=== PATIENT | male | born 1990 | race Caucasian/White ===

== ENCOUNTER 2021-01-22 10:03 | Emergency (ER) | payer MEDICAID, SELFPAY ==
[2021-01-22] VITALS (43 sets, daily range): BP systolic 107–149; BP diastolic 49–79; PULSE 48–87; RESP 11–20; TEMP 37; O2SAT 96–100
[2021-01-22] MEDS: EPINEPHrine 1 MG/ML AMP pres-free ×2 (10:10→11:03)
[2021-01-22] MEDS: Normal Saline 1,000 ML 1000 ML IV ×2 (10:10→10:46)
[2021-01-22] MEDS: diphenhydrAMINE 50 MG/ML VIAL IVP (10:16)
[2021-01-22] MEDS: methylPREDNISolone SUCC 125 MG VIAL IVP (10:19)
[2021-01-22] MEDS: FAMOTIDINE 20 MG/50 ML BAG 200 MG IVPB (10:22)
--- NOTE | 2021-01-22 11:04 | ED.GENADUL_ITS ---
Discharge Plan Disposition Patient Disposition: HOME Condition: Stable Discharge Details Clinical Impression: Anaphylactic reaction to bee sting Primary Care Provider: Unknown,Unknown ED Provider: Sara Robbins Home Meds and New Rx's Prescriptions: New epinephrine [EpiPen] 0.3 mg/0.3 mL auto-injector 0.3 mg IM ONCE Qty: 2 RF: 0 prednisone 20 mg tablet 40 mg PO DAILY Qty: 8 RF: 0 Discharge Instructions Instructions: Prednisone (By mouth), Anaphylaxis (ED), General Allergic Reaction (ED) Additional Instructions: Please return immediately to the emergency department if you develop any new or worsening symptoms, if your condition does not improve as expected, or if you become otherwise concerned. It is extremely important that you call soon as possible to make an appointment to be seen in follow-up for this visit by your primary care doctor. Discharge Data Discharge Date/Time-TO BE ENTERED AT DEPARTURE: 01/22/21 14:24 Medical Decision Making Bang Alvarenga is a 30 y/o man without reported major medical problems who presented to the emergency department with facial swelling and redness, dry throat sensation after being stung by multiple bees in the lower legs. On exam there is no apparent airway compromise, benign cardiopulmonary exam. Concern for early anaphylaxis, possible developing airway involvement with complaint of dry throat. Plan for IV placement, telemetry, IM epi, IV benadryl, IV solumedrol, IV pepcid. Will monitor and reassess. Exam/hx at this time not c/w sepsis, TEN, SJS, infectious etiology of symptoms. Pt developed maculopapular rash to stomach, b/l UEs subsequent to epi and meds, reports no improvement in symptoms. Concern for persistent severe allergic reaction. IM epi redosed. Pt reported feeling significantly improved after 2nd dose epi. Facial swelling and redness subsided, rash improved, denies any abnormal throat or mouth sensation. Will continue to monitor. Pt observed for 4 hours in the ED. No recurrence of symptoms. Pt reports feeling well and asymptomatic. Skin findings resolved. Plan for outpt steroids, rx epipen, outpt f/u. I had a lengthy discussion with Patient regarding return to emergency department precautions, home care, and importance of outpatient follow-up. Pt verbalizes understanding of the plan and is amenable. Patient discharged to home with clear plan for outpatient follow-up. All questions were answered. Disposition decision was made weighing the risks and benefits of hospitalization versus outpatient treatment, the risk for further decompensation, and the patient's wishes. Medical Records Medical records reviewed: Yes I reviewed the patient's medical records. HPI General Mode of arrival: ambulatory . Date/Time Provider Initiated Documentation: 01/22/21 10:05 . Limitations to Documentation: no limitations . Information obtained by: patient, RN notes reviewed and old records reviewed . HPI Narrative: Bang Alvarenga is a 30-year-old man presenting to the emergency department with chief complaint of allergic reaction. 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 He reports with this things were to bilateral lower legs around his sock line. Patient reports that his face feels swollen and hot. He also reports a sensation like there is dry cotton in the back of his throat. He denies any lip or tongue swelling. Denies difficulty breathing. No pain, vomiting, diarrhea, cough, other swelling, rash. No h/o allergies or similar allergic reaction. Was previously well and in his usual state of health. Related Data Home Medications Medication Instructions Recorded Confirmed epinephrine [EpiPen] 0.3 mg IM ONCE #2 ea 01/22/21 01/23/21 prednisone 40 mg PO DAILY #8 tab 01/22/21 01/23/21 Previous Rx's Medication Instructions Recorded epinephrine [EpiPen] 0.3 mg IM ONCE #2 ea 01/22/21 prednisone 40 mg PO DAILY #8 tab 01/22/21 Allergies Allergy/AdvReac Type Severity Reaction Status Date / Time No Known Drug Allergies Allergy Unverified 04/16/17 09:50 General Stated Complaint: Allergic SUNG: 2 Review of Systems Narrative: Constitutional: denies fevers Eyes: denies eye pain ENT: denies ear pain, dental pain, reports drythroat, facial swelling and redness Cardiovascular: denies chest pain Respiratory: denies SOB, cough GI: denies abdominal pain, vomiting, diarrhea : denies flank pain MSK: denies back pain, neck pain, arthralgias, myalgias Skin: denies rash Neuro: denies headaches, numbness, weakness PFSH Surgical History Appendectomy Social History Smoking/Tobacco Use Status: Current, status unknown Smoking risk assessment performed?: Yes Alcohol Intake: current Alcohol Intake frequency: holidays/special occasions only Drug use: Daily Substance use type: marijuana Do you feel safe at home: Yes Do you feel safe in your relationship?: Yes Exam Narrative Exam Narrative: Constitutional: [id number], conversing normally HENT: head atraumatic/normocephalic, diffuse erythema of the face, diffuse edema of the face most signficant in b/l infraorbital areas, mucous membranes moist, no lip or tongue edema, no pharyngeal edema, uvula midline, handling secretions without issue, normal voice Eyes: conjunctiva normal, sclera normal, pupils 3mm b/l Neck: no stridor, normal ROM, trachea midline Chest: normal inspection Resp: normal work of breathing, LCTAB Cardio: normal rate, normal rhythm, no murmur appreciated Back: normal inspection, no rash Skin: warm, dry, normal color, no rash Neuro: alert, not altered, grossly non-focal, normal tone Ext: no edema, no rash, no retained stingers to the lower legs Psych: normal mood, normal affect, normal behavior Course Vital Signs Vital signs: Vital Signs Temperature 37.0 C 01/22/21 10:06 Pulse 78 01/22/21 10:06 Blood Pressure 149/79 H 01/22/21 10:06 Pulse Oximetry 99 01/22/21 10:06 Temperature 37.0 C 01/22/21 10:06 Temperature Source Temporal Artery Scan 01/22/21 10:06 Pulse 78 01/22/21 10:06 Respiratory Effort 01/22/21 10:35 Respiratory Pattern Normal 01/22/21 10:35 Blood Pressure 149/79 H 01/22/21 10:06 Blood Pressure Position Sitting 01/22/21 10:06 Pulse Oximetry 99 01/22/21 10:06 Oxygen Delivery Method Room Air 01/22/21 10:06 Oxygen Flow Rate 0 01/22/21 10:06 Pain Level 0 01/22/21 10:06 Critical Care Time Critical Care Time Critical Care Time: Yes Total Critical Care Time: 35 Attestation: I have spent 35 minutes of critical care time with this patient, including frequent reassessments and discussions with family.
== END 2021-01-22 14:24 | disposition home or self-care (01) ==
PROVIDERS: Emergency Provider Student in an Organized Health Care Education/Training Program
DX: T63.441A Toxic effect of venom of bees, accidental (unintentional), initial encounter (principal); T78.2XXA Anaphylactic shock, unspecified, initial encounter; R22.0 Localized swelling, mass and lump, head; L53.8 Other specified erythematous conditions; J39.2 Other diseases of pharynx
CPT/HCPCS: 96361; 96374; 96375; 96376; 99284; J0171; J1200; J2930

== ENCOUNTER 2021-01-23 12:04 | Emergency (ER) | payer MEDICAID, SELFPAY ==
[2021-01-23] VITALS (15 sets, daily range): BP systolic 90–117; BP diastolic 60–70; PULSE 44–66; RESP 12–19; TEMP 36.4; O2SAT 98–100
--- NOTE | 2021-01-23 12:41 | W.ED.GENAD ---
Discharge Plan Disposition Patient Disposition: HOME Condition: Stable Discharge Details Clinical Impression: Allergic reaction Primary Care Provider: Unknown,Unknown ED Provider: oJsh Mena Home Meds and New Rx's Prescriptions: New prednisone 20 mg tablet 20 mg PO DAILY 3 Days Qty: 3 RF: 0 Continued epinephrine [EpiPen] 0.3 mg/0.3 mL auto-injector 0.3 mg IM ONCE Qty: 2 RF: 0 prednisone 20 mg tablet 40 mg PO DAILY Qty: 8 RF: 0 Discharge Instructions Instructions: Insect Bite or Sting (ED) Additional Instructions: Continue [id number] Benadryl as directed, add on Pepcid. I am also prescribing you an additional 20 mg a day of prednisone for the next 3 days, this will be a total of 60 mg a day. Please watch for new or worsening symptoms and return to the ER for any concerns. EpiPen as directed. Please reach out to your primary care provider to make them aware of your ER visit and need for outpatient reevaluation. Medical Decision Making This is a 30-year-old gentleman who presents to the ER yesterday for anaphylactic secondary to bee sting, took Benadryl today at 1030 but has not taken a repeat dose of steroids or any Pepcid, concern now that his symptoms are returning. Patient presents with mild scant rash, no airways compromise whatsoever. Discussed options, will obtain IV access, give IV fluid, IV Pepcid, give 20 mg p.o. prednisone. Patient with initially going be placed on 60 mg but reported that in the past he felt depressed on steroids. At this time risks and benefit were discussed and will provide additional 20 mg for the next 3 days. Patient is agreeable to this time. We discussed treating his symptoms with [id number] Benadryl and Pepcid as directed, not periodically. He will take the steroids as directed and watch for new or worsening symptoms. He is already prescribed a EpiPen. Patient was observed in the ER for over 2 hours, remained hemodynamically stable, no evidence of worsening symptoms, airway compromise, distress, etc. Rash upon discharge was still present but much less erythematous, and in general was improving. Airway is patent. No wheezing. Patient speaking in full sentences. Patient has no additional questions or concerns and is comfortable discharge at this time. Standard discharge and return precautions given This documentation was generated using Dragon dictation system, please disregard any oddities of phrase or misspellings. Medical Records Medical records reviewed: Yes I reviewed the patient's medical records. HPI General Mode of arrival: ambulatory. Date/Time Provider Initiated Documentation: 01/23/21 12:14. Limitations to Documentation: no limitations. Information obtained by: patient and family. HPI Narrative: This is a 30-year-old gentleman, denies significant past sickle history, presenting for allergic reaction from a bee sting yesterday. Patient was seen in our ER yesterday after multiple bee stings to his legs, had 2 EpiPen's, steroids and Benadryl, subsequently discharged. Patient reports that when he left the ER yesterday afternoon he felt like his rash was still slightly present but was much improved, woke up this morning with worsening symptoms, took his 50 Benadryl around 1030 this morning and reports symptoms are slightly improving. He states that he cannot tell if he is simply anxious or the reaction is returning. Feels a slight rash to his hands, bilateral lower extremities, slightly red and itchy. He reports minimal nauseous sensation but no vomiting. Denies headache visual change, neck pain, chest pain, shortness of breath, mouth or tongue swelling, wheezing, abdominal pain, fever. Related Data Home Medications Medication Instructions Recorded Confirmed epinephrine [EpiPen] 0.3 mg IM ONCE #2 ea 01/22/21 01/23/21 prednisone 40 mg PO DAILY #8 tab 01/22/21 01/23/21 prednisone 20 mg PO DAILY 3 Days #3 tab 01/23/21 Previous Rx's Medication Instructions Recorded epinephrine [EpiPen] 0.3 mg IM ONCE #2 ea 01/22/21 prednisone 40 mg PO DAILY #8 tab 01/22/21 prednisone 20 mg PO DAILY 3 Days #3 tab 01/23/21 Allergies Allergy/AdvReac Type Severity Reaction Status Date / Time No Known Drug Allergies Allergy Unverified 04/16/17 09:50 General Stated Complaint: Allergic SUNG: 2 Review of Systems Constitutional Constitutional: Denies fever(s) and Denies headache(s) Eyes Eyes: Denies change in vision ENT Ears, Nose, Mouth, and Throat: Denies headache(s), Denies throat swelling and Denies tongue swelling Cardiovascular Cardiovascular: Denies chest pain and Denies dyspnea Respiratory Respiratory: Denies cough, Denies dyspnea and Denies wheezing Integumentary/Breasts Skin/Breast: Reports rash Neurologic Neurologic: Denies headache(s) Allergic/Immunologic Allergic/Immunologic: Denies throat swelling, Denies tongue swelling and Denies wheezing [facility] Surgical History Appendectomy Social History Smoking/Tobacco Use Status: Current, status unknown Smoking risk assessment performed?: Yes Alcohol Intake: current Alcohol Intake frequency: holidays/special occasions only Drug use: Daily Substance use type: marijuana Do you feel safe at home: Yes Do you feel safe in your relationship?: Yes Exam Const General: cooperative, healthy appearing, comfortable and no acute distress Orientation: alert, awake and oriented x3 HENMT Head: normal to inspection, normocephalic and atraumatic Mouth: oral mucosae normal and moist mucous membranes Throat: posterior oropharynx normal Eyes General: appearance normal, both eyes and all related structures Alignment and Position: alignment normal Periorbital: periorbital findings normal Eyelids: eyelids normal Conjunctivae: conjunctivae normal Sclera: sclerae normal Cornea: corneas normal Pupils: PERRL EOM: EOM intact bilaterally Direct ophthalmoscopy: normal light reflex Neck Neck: normal visual inspection, full ROM, trachea midline and supple Resp Effort & Inspection: normal respiratory effort and able to speak in complete sentences Auscultation: clear to auscultation bilaterally Cardio Rate: bradycardic (55) Rhythm: regular rhythm GI Palpation: soft and nontender Back/Spine/Pelvis Back: No back tenderness Skin Other: Scant erythematous hives right forehead, bilateral lower extremities, right upper back. Skin is intact. There is no discomfort or drainage. No evidence of secondary infection. Neuro General: patient alert, patient awake, patient oriented x3, moves all extremities and no focal motor deficits Cognition: normal cognition Speech: speech normal Gait: normal gait Motor: muscle tone normal throughout Sensory Exam: no sensory deficits noted Extrem General: full ROM and capillary refill normal Psych Appearance: grossly normal Mental Status: mental status grossly normal Course Vital Signs Vital signs: Vital Signs Temperature 36.4 C L 01/23/21 12:09 Pulse 55 L 01/23/21 12:09 Respiratory Rate 12 01/23/21 12:09 Blood Pressure 117/70 01/23/21 12:09 Pulse Oximetry 99 01/23/21 12:09 Temperature 36.4 C L 01/23/21 12:09 Temperature Source Tympanic 01/23/21 12:09 Pulse 59 L 01/23/21 12:20 Pulse 58 L 01/23/21 12:21 Respiratory Rate 14 01/23/21 12:21 Respiratory Effort Non-Labored 01/23/21 12:14 Respiratory Pattern Normal 01/23/21 12:14 Blood Pressure 113/66 01/23/21 12:20 Blood Pressure Mean 77 01/23/21 12:20 Blood Pressure Position Sitting 01/23/21 12:09 Pulse Oximetry 99 01/23/21 12:21 Oxygen Delivery Method Room Air 01/23/21 12:09 Oxygen Flow Rate 0 01/23/21 12:09 Pain Level 0 01/23/21 12:09
[2021-01-23] MEDS: predniSONE 20 MG TAB PO (12:55)
[2021-01-23] MEDS: FAMOTIDINE 20 MG/50 ML BAG 200 MG IVPB (12:55)
[2021-01-23] MEDS: Normal Saline 1,000 ML 1000 ML IV (12:55)
== END 2021-01-23 14:50 | disposition home or self-care (01) ==
PROVIDERS: Emergency Provider Physician Assistant
DX: T63.461A Toxic effect of venom of wasps, accidental (unintentional), initial encounter (principal); L50.0 Allergic urticaria
CPT/HCPCS: 36415; 96361; 96365; 99284; J7512